=== PATIENT | male | born 1935 ===

== ENCOUNTER 2017-10-19 18:06 | Emergency (ER) | payer MEDICARE ==
[~2017-10-19] VITALS: Ht 180.3 cm; Wt 89.9 kg
[2017-10-19 18:09] VITALS: BP 159/94
[2017-10-19 18:31] LABS: BASOPHILS # (AUTO) 0.1 X10'3 (0-0.2); EOSINOPHILS # (AUTO) 0.5 X10'3 (0-0.9); EOSINOPHILS % (AUTO) 5.8 % (0-6); HEMATOCRIT 42.2 % (42.0-52.0); HEMOGLOBIN 14.4 g/dl (14.0-17.9); LYMPHOCYTES # (AUTO) 2.1 X10'3 (1.1-4.8); LYMPHOCYTES % (AUTO) 25.2 % (21-51); MEAN CORPUSCULAR HEMOGLOBIN 28.6 PG (27.0-31.0); MEAN CORPUSCULAR HGB CONC 34.2 % (33.0-36.5); MEAN CORPUSCULAR VOLUME 83.7 FL (78-98); MEAN PLATELET VOLUME 8.1 FL (7.4-10.4); MONOCYTES # (AUTO) 0.9 X10'3 (0-0.9); MONOCYTES % (AUTO) 11.1 % (2-12); NEUTROPHILS # (AUTO) 4.7 X10'3 (1.8-7.7); NEUTROPHILS % (AUTO) 56.9 % (42-75); PLATELET COUNT 250 X10'3 (140-440); RED BLOOD COUNT 5.04 X10'6 (4.70-6.10); RED CELL DISTRIBUTION WIDTH 13.2 % (11.5-14.5); WHITE BLOOD COUNT 8.3 X10'3 (4.5-11.0)
[2017-10-19 18:41] LABS: INR 0.9 INR; PARTIAL THROMBOPLASTIN TIME 25 SECONDS (22-32); PROTHROMBIN TIME 9.6 SECONDS (9.0-12.0)
[2017-10-19 18:47] LABS: ALANINE AMINOTRANSFERASE 40 U/L (12-78); ALBUMIN 4.1 G/DL (3.4-5.0); ALBUMIN/GLOBULIN RATIO 1.1 (1.1-1.5); ALKALINE PHOSPHATASE 78 IU/L (46-116); ANION GAP 10 (8-16); ASPARTATE AMINO TRANSFERASE 26 U/L (10-37); BILIRUBIN,TOTAL 0.3 MG/DL (0.1-1.0); BLOOD UREA NITROGEN 18 MG/DL (7-18); BUN/CREATININE RATIO 14.1 (5.4-32.0); CHLORIDE 107 MMOL/L (99-107); CREATININE 1.28 MG/DL (0.60-1.10); GLUCOSE 102 MG/DL (70-104); POTASSIUM 4.1 MMOL/L (3.5-5.1); SODIUM 145 MMOL/L (135-145); TOTAL CARBON DIOXIDE 27.8 MMOL/L (24-32); eGFR 54 ML/MIN
== END 2017-10-19 19:30 | disposition left against medical advice (07) ==
LOC: ER 18:07
DX: R07.9 Chest pain, unspecified (principal); Z53.21 Procedure and treatment not carried out due to patient leaving prior to being seen by health care provider
CPT/HCPCS: 36415; 71045; 80053; 84484; 85025; 85610; 85730

== ENCOUNTER 2020-10-31 16:17 | Inpatient (IN) | payer MEDICARE ==
[~2020-10-31] VITALS: Ht 177.8 cm; Wt 86.4 kg
[2020-10-31 16:59] LABS: BASOPHILS % (AUTO) 0.3 % (0-1); EOSINOPHILS # (AUTO) 0.1 X10'3 (0-0.9); HEMOGLOBIN 13.6 g/dl (14.0-17.9); LYMPHOCYTES # (AUTO) 1.4 X10'3 (1.1-4.8); LYMPHOCYTES % (AUTO) 21.2 % (21-51); MEAN CORPUSCULAR HEMOGLOBIN 27.6 PG (27.0-31.0); MEAN CORPUSCULAR HGB CONC 33.1 g/dL (33.0-36.5); MEAN CORPUSCULAR VOLUME 83.5 FL (78-98); MEAN PLATELET VOLUME 8.4 FL (7.4-10.4); MONOCYTES # (AUTO) 0.7 X10'3 (0-0.9); MONOCYTES % (AUTO) 11.2 % (2-12); NEUTROPHILS # (AUTO) 4.3 X10'3 (1.8-7.7); NEUTROPHILS % (AUTO) 66.3 % (42-75); PLATELET COUNT 225 X10'3 (140-440); RED BLOOD COUNT 4.91 X10'6 (4.70-6.10); RED CELL DISTRIBUTION WIDTH 13.3 % (11.5-14.5); WHITE BLOOD COUNT 6.5 X10'3 (4.5-11.0)
[2020-10-31 17:08] LABS: PARTIAL THROMBOPLASTIN TIME 25 SECONDS (22-32)
[2020-10-31 17:17] LABS: ALANINE AMINOTRANSFERASE 30 U/L (12-78); ALBUMIN 3.6 G/DL (3.4-5.0); ALBUMIN/GLOBULIN RATIO 1.1 (1.1-1.5); ALKALINE PHOSPHATASE 92 IU/L (46-116); ANION GAP 8 (8-16); ASPARTATE AMINO TRANSFERASE 23 U/L (10-37); BILIRUBIN,TOTAL 0.3 MG/DL (0.1-1.0); BLOOD UREA NITROGEN 18 MG/DL (7-18); BUN/CREATININE RATIO 13.3 (5.4-32.0); CALCIUM 8.7 MG/DL (8.5-10.1); CHLORIDE 107 MMOL/L (99-107); CREATININE 1.35 MG/DL (0.60-1.10); GLUCOSE 153 MG/DL (70-104); SODIUM 143 MMOL/L (135-145); TOTAL CARBON DIOXIDE 27.9 MMOL/L (24-32); TOTAL PROTEIN 6.9 G/DL (6.4-8.2); eGFR 50 ML/MIN
[2020-10-31] MEDS ORDERED: OMEP20TA23 PO (17:45)
[2020-10-31] MEDS ORDERED: AMLO5TAB4 PO (17:45)
[2020-10-31] MEDS ORDERED: SIMV20TA PO (17:45)
[2020-10-31] MEDS ORDERED: FLO0.4C PO (17:45)
[2020-10-31] MEDS ORDERED: ASPI-611 PO (17:45)
[2020-10-31] MEDS ORDERED: magnesium hydroxide 30ml (MOM) UD suspension PO PRN (17:50)
[2020-10-31] MEDS ORDERED: mag hydrox/Alum hydrox/simeth 30ml oral suspension PO PRN (17:50)
[2020-10-31] MEDS ORDERED: morphine 2 MG/ML inj. syringe IV PRN ×2 (17:50)
[2020-10-31] MEDS ORDERED: ondansetron/PF 4mg/2ml inj IV PRN (17:50)
[2020-10-31] MEDS ORDERED: acetaminophen 325mg tablet PO PRN ×2 (17:50)
[2020-10-31 18:19] LABS: CLARITY,URINE CLEAR (Clear); COLOR,URINE STRAW (Yellow); GLUCOSE, URINE NEGATIVE (Neg); KETONES,URINE NEGATIVE (Neg); LEUKOCYTE ESTERASE ,URINE SMALL (Neg); NITRITES, URINE NEGATIVE (Neg); OCCULT BLOOD,URINE NEGATIVE (Neg); PROTEIN,URINE NEGATIVE (Neg); UROBILINOGEN,URINE 0.2 E.U/dL (0.2-1.0)
[2020-10-31 18:35] LABS: UA COLLECTION TYPE URINAL
[2020-10-31 18:36] LABS: SQUAMOUS EPITHELIAL CELL,UR FEW /LPF (FEW)
[2020-10-31 18:37] LABS: BACTERIA,URINE FEW /HPF (Neg); RBC,URINE 0-2 /HPF (0-2); WBC,URINE 0-4 /HPF (0-4)
[2020-10-31] MEDS: normal saline 1000ml 1,000 ML IV SCH ×3 (19:20→19:40)
[2020-10-31 20:00] VITALS: BP_SYST 132; BP_SYST 153; BP_SYST 156; BP_DIAS 77; BP_DIAS 87
[2020-10-31] MEDS: docusate sod 100mg capsule PO SCH (20:00)
--- NOTE | 2020-10-31 20:37 | NUR ---
Patient in room ED 9. I have received report from Tina ROQUE and had the opportunity to ask questions and assume patient care.
[2020-10-31 21:15] VITALS: BP 156/90
--- NOTE | 2020-10-31 21:15 | NUR ---
pt to floor
[2020-11-01] VITALS (10 sets, daily range): BP systolic 119–196; BP diastolic 72–91
--- NOTE | 2020-11-01 06:15 | NUR ---
Problems reprioritized. Patient report given, questions answered & plan of care reviewed with Abebe ROQUE.
[2020-11-01 06:25] LABS: BASOPHILS % (AUTO) 0.5 % (0-1); EOSINOPHILS # (AUTO) 0.1 X10'3 (0-0.9); EOSINOPHILS % (AUTO) 1.4 % (0-6); HEMATOCRIT 41.2 % (42.0-52.0); HEMOGLOBIN 13.6 g/dl (14.0-17.9); LYMPHOCYTES # (AUTO) 1.4 X10'3 (1.1-4.8); MEAN CORPUSCULAR HGB CONC 33.1 g/dL (33.0-36.5); MEAN CORPUSCULAR VOLUME 84.5 FL (78-98); MONOCYTES # (AUTO) 0.6 X10'3 (0-0.9); MONOCYTES % (AUTO) 10.1 % (2-12); NEUTROPHILS # (AUTO) 4.1 X10'3 (1.8-7.7); PLATELET COUNT 232 X10'3 (140-440); RED BLOOD COUNT 4.88 X10'6 (4.70-6.10); RED CELL DISTRIBUTION WIDTH 13.5 % (11.5-14.5); WHITE BLOOD COUNT 6.2 X10'3 (4.5-11.0)
--- NOTE | 2020-11-01 06:36 | NUR ---
pt was sched for stress test w/ Dr. Erasmo Jordan at [facility] the pt "does NOT have any appts" with them this am.Pt NPO just in case-Informed day shift- if no orders for stress test consider giving pt breakfast- expl to pt he understands, would like to do test today if possible
[2020-11-01 06:42] LABS: ALBUMIN 3.6 G/DL (3.4-5.0); ANION GAP 10 (8-16); BLOOD UREA NITROGEN 15 MG/DL (7-18); BUN/CREATININE RATIO 11.6 (5.4-32.0); CALCIUM 8.9 MG/DL (8.5-10.1); CHLORIDE 109 MMOL/L (99-107); CHOL/HDL RATIO 2.9 (0.00-4.99); CHOLESTEROL 101 MG/DL (0-200); CREATININE 1.29 MG/DL (0.60-1.10); GLUCOSE 89 MG/DL (70-104); HDL CHOLESTEROL 35 MG/DL (35-60); LDL CHOLESTEROL 54 MG/DL (50-100); POTASSIUM 4.2 MMOL/L (3.5-5.1); SODIUM 145 MMOL/L (135-145); TOTAL CARBON DIOXIDE 25.6 MMOL/L (24-32); TRIGLYCERIDES 93 MG/DL (20-135); eGFR 53 ML/MIN
[2020-11-01] MEDS: docusate sod 100mg capsule PO SCH ×2 (08:07→08:10)
[2020-11-01] MEDS: aspirin 81mg tablet.DR PO SCH (09:30)
[2020-11-01] MEDS: tamsulosin 0.4mg capsule PO SCH (09:30)
--- NOTE | 2020-11-01 12:25 | NUR ---
Lloyd Mohamud- room 4015A- pt BP 196/93, HR 73, pt complains of intermittent pressure between right eye. States he gets this when his blood pressure is elevated. Can we start his amlodipine now and/or give hydralazine IV?- Abebe RN [id number]
[2020-11-01] MEDS ORDERED: amLODIPine 5mg tablet PO ONE (12:55)
[2020-11-01] MEDS ORDERED: atorvastatin 10mg tablet PO SCH (21:00)
[2020-11-01] MEDS ORDERED: amLODIPine 5mg tablet PO SCH (21:00)
[2020-11-01] MEDS: normal saline 1000ml 1,000 ML IV SCH (23:50)
[2020-11-02 06:00] VITALS: BP 178/76
[2020-11-02 06:21] LABS: BASOPHILS % (AUTO) 0.7 % (0-1); EOSINOPHILS # (AUTO) 0.1 X10'3 (0-0.9); EOSINOPHILS % (AUTO) 1.2 % (0-6); HEMATOCRIT 39.4 % (42.0-52.0); HEMOGLOBIN 13.1 g/dl (14.0-17.9); LYMPHOCYTES # (AUTO) 1.2 X10'3 (1.1-4.8); LYMPHOCYTES % (AUTO) 22.3 % (21-51); MEAN CORPUSCULAR HEMOGLOBIN 27.9 PG (27.0-31.0); MEAN CORPUSCULAR HGB CONC 33.2 g/dL (33.0-36.5); MEAN CORPUSCULAR VOLUME 84.2 FL (78-98); MEAN PLATELET VOLUME 8.2 FL (7.4-10.4); MONOCYTES # (AUTO) 0.7 X10'3 (0-0.9); MONOCYTES % (AUTO) 12.3 % (2-12); NEUTROPHILS # (AUTO) 3.5 X10'3 (1.8-7.7); NEUTROPHILS % (AUTO) 63.5 % (42-75); PLATELET COUNT 211 X10'3 (140-440); RED BLOOD COUNT 4.68 X10'6 (4.70-6.10); RED CELL DISTRIBUTION WIDTH 13.3 % (11.5-14.5); WHITE BLOOD COUNT 5.4 X10'3 (4.5-11.0)
--- NOTE | 2020-11-02 06:30 | NUR ---
Informed day shift & charge pt has + Urine culture
[2020-11-02 06:31] LABS: ALBUMIN 3.3 G/DL (3.4-5.0); ANION GAP 7 (8-16); BLOOD UREA NITROGEN 17 MG/DL (7-18); BUN/CREATININE RATIO 13.9 (5.4-32.0); CALCIUM 8.7 MG/DL (8.5-10.1); CHLORIDE 108 MMOL/L (99-107); CREATININE 1.22 MG/DL (0.60-1.10); GLUCOSE 91 MG/DL (70-104); SODIUM 142 MMOL/L (135-145); TOTAL CARBON DIOXIDE 27.4 MMOL/L (24-32); eGFR 56 ML/MIN
--- NOTE | 2020-11-02 06:39 | NUR ---
Problems reprioritized. Patient report given, questions answered & plan of care reviewed with Tia ROQUE.
[2020-11-02] MEDS ORDERED: lisinopril 10 MG tablet PO ONE (07:20)
[2020-11-02] MEDS ORDERED: pantoprazole 40mg Tablet.DR PO PRN (07:30)
[2020-11-02 08:00] VITALS: BP_SYST 137; BP_SYST 148; BP_SYST 168; BP_DIAS 68; BP_DIAS 71; BP_DIAS 75; BP_DIAS 78
[2020-11-02] MEDS: tamsulosin 0.4mg capsule PO SCH (08:01)
[2020-11-02] MEDS: aspirin 81mg tablet.DR PO SCH (08:01)
[2020-11-02] MEDS: docusate sod 100mg capsule PO SCH (08:02)
[2020-11-02] MEDS: normal saline 1000ml 1,000 ML IV SCH (08:02)
[2020-11-02 09:11] VITALS: BP 160/80
[2020-11-02 10:00] VITALS: BP 148/68
[2020-11-02] MEDS ORDERED: iohexol 300mg/ml 100ml inj. ONE (11:51)
--- NOTE | 2020-11-02 15:19 | NUR ---
GOOD AFTERNOON [address] SCAN OF THE NECK RESULTS ARE BACK.
[2020-11-02] MEDS ORDERED: LISI10TA27 PO (15:40)
--- NOTE | 2020-11-02 16:37 | NUR ---
PATIENT AT THIS TIME DC, DC INSTRUCTIONS GIVEN IV TAKEN OUT, PATIENT INDICATES UNDERSTANDING OF DC INSTRUCTIONS, PATIENT STABLE AND TAKEN DOWN VIA WHEELCHAIR NEXT TO NO OTHER NEEDS AT THIS TIME.
--- NOTE | 2020-11-03 12:11 | NUR ---
CASE MANAGEMENT DISCHARGE FOLLOW UP: Spoke with pt's , Brandy, via telephone. Reports that pt is doing "pretty well," with a transient episode of dizziness this AM, self-resolving, AM BP of 140/50; denies nausea, weakness, chest pain. She states that pt did have a headache yesterday but it has since resolved with tylenol. Advised that if pt develops symptoms of dizziness, headache to check BP as it may be too high at that time. She states that they will, and it usually is because his BP is too high. Verbalizes understanding of s/sx requiring further evaluation/emergent assistance. Per Brandy, neither she nor her were told that there was a medication for the patient at his preferred pharmacy. Provided verbal education to pt's about the medication lisinopril and the purpose of taking that medication. She verbalizes understanding. Verbalizes understanding of the importance in making/keeping follow-up appointments, has f/u appt with PCP on Friday, 11/06. Pt was supposed to see Dr Smith on 11/01 for a Lexiscan, no Manisha during hospitalization, advised to contact Dr Smith's office to reschedule Lexiscan, she states that they will. States no further questions/concerns at this time.
== END 2020-11-02 16:30 | disposition home or self-care (01) | DRG 312 ==
LOC: ER 16:17 → ED HOLD 17:49 → OBSVTOIN 17:49 → ORTHO 4S 21:00
PROVIDERS: ADMIT Internal Medicine; ATTEND Internal Medicine
PROC: BW2F1ZZ Computerized Tomography (CT Scan) of Neck using Low Osmolar Contrast (ICD-10-PCS; principal; 2020-11-02)
DX: R55 Syncope and collapse (principal); N40.0 Benign prostatic hyperplasia without lower urinary tract symptoms; Z96.653 Presence of artificial knee joint, bilateral; E78.5 Hyperlipidemia, unspecified; I12.9 Hypertensive chronic kidney disease with stage 1 through stage 4 chronic kidney disease, or unspecified chronic kidney disease; I25.10 Atherosclerotic heart disease of native coronary artery without angina pectoris; N18.30 Chronic kidney disease, stage 3 unspecified; K21.9 Gastro-esophageal reflux disease without esophagitis; Z79.899 Other long term (current) drug therapy; Z88.5 Allergy status to narcotic agent
CPT/HCPCS: 36415; 70450; 70492; 71045; 80048; 80053; 80061; 81001; 83735; 83880; 84484; 85025; 85610; 85730; 87081; 87088; 93005; 93306; 93308; 93880; 96360; 99285; G0378; J7030; Q9967